=== PATIENT | male | born 1980 | race Caucasian/White ===

== ENCOUNTER 2019-11-30 20:06 | Emergency (ER) | payer BC ==
[~2019-11-30] VITALS: Ht 182.9 cm; Wt 172.7 kg
[~2019-11-30 20:06] MED LIST: ASPIRIN E.C. 8181 MG PO; COZAAR50 MG PO; METFORMIN500 MG PO; OMEPRAZOLE40 MG PO; SERTRALINE HCL100 MG PO; SIMVASTATIN20 MG PO; VERAPAMIL240 MG PO
[2019-11-30 20:11] VITALS: TEMP 98.8
[2019-11-30 21:08] LABS: BASO % 0.4 % (0.0-2.0); GRAN # 4.1 (1.4-6.5); GRAN % 76.6 % (42.2-75.2); HEMATOCRIT 41.7 % (42.0-52.0); HEMOGLOBIN 13.3 g/dl (13.5-18.0); LYMPH # 0.8 (1.2-3.4); MEAN CELL VOLUME 82 fl (80.0-100.0); MEAN CORPUSCULAR HEMOGLOBIN 26 pg (27.0-31.0); MEAN CORPUSCULAR HGB CONC 32 g/dl (33.0-37.0); MEAN PLATELET VOLUME 10.6 fl (7.4-10.4); MONO # 0.5 (0.1-0.6); MONO % 8.6 % (1.7-9.3); PLATELET COUNT 243 K/mm3 (130-400); RED BLOOD COUNT 5.11 M/mm3 (4.20-5.60); REDCELL DISTRIBUTION WIDTH-CV 14.8 % (11.5-14.5)
[2019-11-30 21:30] LABS: ALBUMIN 4.3 gm/dL (3.5-5.0); BILIRUBIN,TOTAL 0.6 mg/dL (0.0-1.0); CALCIUM 8.9 mg/dL (8.4-10.2); CREATININE, serum 0.89 (0.66-1.25); POTASSIUM 4.1 mmol/L (3.4-5.0); TOTAL PROTEIN 8.5 gm/dL (6.4-8.2)
[2019-11-30 23:20] VITALS: BP 153/91; PULSE 88
== END 2019-11-30 23:20 | disposition home or self-care (01) ==
LOC: COL.ER 20:06
PROVIDERS: Emergency Medicine
DX: G45.3 Amaurosis fugax (principal); I10 Essential (primary) hypertension; E66.9 Obesity, unspecified; F41.9 Anxiety disorder, unspecified; E78.5 Hyperlipidemia, unspecified; K21.9 Gastro-esophageal reflux disease without esophagitis; Z79.82 Long term (current) use of aspirin